=== PATIENT | male | born 1990 | race Caucasian/White ===

== ENCOUNTER 2018-11-17 18:57 | Emergency (ER) | payer MEDICAID ==
[~2018-11-17] VITALS: Ht 185.4 cm; Wt 59.0 kg
[~2018-11-17 18:57] MED LIST: IBUP-2028 PO
[2018-11-18 00:05] VITALS: BP 139/62
[2018-11-18] MEDS ORDERED: GUAIFENESIN-DM 200MG-20MG/10ML UDC PO ONE (01:15)
== END 2018-11-18 01:50 | disposition home or self-care (01) ==
LOC: ER 18:57
DX: R05 Cough (principal); R50.9 Fever, unspecified; Z98.890 Other specified postprocedural states
CPT/HCPCS: 71045; 87804; 99284

== ENCOUNTER 2019-08-08 14:08 | Emergency (ER) | payer MEDICAID ==
[~2019-08-08] VITALS: Ht 180.3 cm; Wt 75.0 kg
[2019-08-08 18:17] VITALS: BP 118/67
== END 2019-08-08 18:18 | disposition home or self-care (01) ==
LOC: ER 14:08
DX: R06.02 Shortness of breath (principal)
CPT/HCPCS: 71045; 99283

== ENCOUNTER 2021-12-22 16:15 | Emergency (ER) | payer MEDICAID ==
[~2021-12-22] VITALS: Ht 177.8 cm; Wt 91.0 kg
[2021-12-22 16:24] VITALS: BP 155/79
[2021-12-22] MEDS ORDERED: LIDOCAINE HCL/PF 1% 10 MG/ML 5ML VIAL INFIL ONE (16:45)
[2021-12-22] MEDS ORDERED: BACITRACIN ZINC OINT UDPKT TOP ONE (16:45)
[2021-12-22] MEDS ORDERED: SULF1TAB48 MT (17:06)
== END 2021-12-22 17:14 | disposition home or self-care (01) ==
LOC: ER 16:24
DX: L02.425 Furuncle of right lower limb (principal); R10.30 Lower abdominal pain, unspecified
CPT/HCPCS: 10060; 99282; J3490; Z7610

== ENCOUNTER 2021-12-24 17:26 | Emergency (ER) | payer MEDICAID ==
[~2021-12-24] VITALS: Ht 185.4 cm; Wt 91.0 kg
[~2021-12-24 17:26] MED LIST changes: +SULF1TAB48 MT
[2021-12-24 17:59] VITALS: BP 137/70
== END 2021-12-24 18:08 | disposition home or self-care (01) ==
LOC: ER 17:30
DX: L02.415 Cutaneous abscess of right lower limb (principal); Z48.00 Encounter for change or removal of nonsurgical wound dressing
CPT/HCPCS: 99281

== ENCOUNTER 2022-02-23 19:34 | Emergency (ER) | payer MEDICAID ==
[~2022-02-23] VITALS: Ht 182.9 cm; Wt 113.5 kg
[2022-02-23] MEDS ORDERED: LIDOCAINE HCL 1% 20ML VIAL (Pyxis) INJ INFIL ONE (22:15)
[2022-02-23 23:49] VITALS: BP 138/5
== END 2022-02-24 00:06 | disposition home or self-care (01) ==
LOC: ER 19:34
DX: L02.426 Furuncle of left lower limb (principal)
CPT/HCPCS: 99281; J3490

== ENCOUNTER 2022-03-12 19:14 | Emergency (ER) | payer MEDICAID ==
[~2022-03-12] VITALS: Ht 185.4 cm; Wt 86.0 kg
[2022-03-12 19:16] VITALS: BP 141/71
[2022-03-12 21:38] LABS: CLARITY URINE CLEAR (CLEAR); COLOR URINE YELLOW (YELLOW); KETONES URINE NEGATIVE (NEGATIVE); LEUKOCYTE ESTERASE URINE 1+ (NEGATIVE); NITRITE URINE NEGATIVE (NEGATIVE); OCCULT BLOOD URINE NEGATIVE (NEGATIVE); PH URINE 5.5 (4.5-8.0); PROTEIN URINE NEGATIVE (NEGATIVE); SPECIFIC GRAVITY URINE 1.022 (1.005-1.030); UROBILINOGEN URINE 0.2 E.U./dL (0.2-1.0)
[2022-03-12] MEDS ORDERED: CEFTRIAXONE SODIUM 500 MG/VIAL IM ONE (22:45)
[2022-03-12] MEDS ORDERED: LIDOCAINE HCL 1% 20ML VIAL (Pyxis) INJ INFIL ONE (22:45)
[2022-03-12] MEDS ORDERED: ACYC200C31 MT (22:55)
[2022-03-12] MEDS ORDERED: DOXY100T2 MT (22:55)
[2022-03-12] MEDS ORDERED: CIPR500T5 MT (22:55)
[2022-03-15 04:12] LABS: NEISSERIA GONORRHOEAE NAA Negative (Negative)
== END 2022-03-12 23:17 | disposition home or self-care (01) ==
LOC: ER 19:14
DX: A64 Unspecified sexually transmitted disease (principal); B00.9 Herpesviral infection, unspecified; N39.0 Urinary tract infection, site not specified
CPT/HCPCS: 81003; 87491; 87591; 96372; 99283; J0696; J3490